=== PATIENT | female | born 1965 | race Two or more races ===

== ENCOUNTER 2018-11-20 05:45 | Day surgery (SDC) | payer OTHER ==
[~2018-11-20 05:45] MED LIST: LOSARTAN-HCTZ1 EAC2 PO
[2018-11-20] MEDS ORDERED: PERCOCET 5-3251 EACH PO (08:55)
== END 2018-11-20 13:20 | disposition home or self-care (01) ==
LOC: CIR.AMB 05:45
DX: D35.1 Benign neoplasm of parathyroid gland (principal)